=== PATIENT | female | born 1950 | race Caucasian/White ===

== ENCOUNTER 2016-12-27 11:42 | Emergency (ER) | payer MEDICARE ==
[2016-12-27 12:31] VITALS: TEMP 98
--- NOTE | 2016-12-27 13:26 | ED ---
Fall HPI - General Chief Complaint: Fall Stated Complaint: Fall Time Seen by Provider: 12/27/16 13:05 Source: patient, RN notes reviewed Mode of arrival: wheelchair - History of Present Illness Initial Comments: 66-year-old female presents to the emergency department with a chief complaint of fall. Patient was sitting on a chair Nikolai bandage or legs and she fell onto his left side. Patient states that her left knee left hip left rib cage and left side of neck and head hurt. Patient states she has a mild headache. Patient states that she went for a walk today shows that she was SITTING LEFT SIDE SO SHE WAS CONCERNED. PATIENT STATES THERE IS NO OTHER INJURY FROM THE INCIDENT. PATIENT STATES THERE IS NO LOSS OF CONSCIOUSNESS. PATIENT DENIES ANY USE OF BLOOD THINNERS. PATIENT STATES THAT HER SYMPTOMS SEEM TO BE ABOUT THE SAME CONSTANT THROBBING TYPE PAIN THAT IS MODERATE WORSE TO TOUCH IN CERTAIN MOVEMENT. PATIENT STATES THAT SHE IS NOT CURRENTLY HAVING ANY OTHER SYMPTOMS AT THIS TIME. Patient denies any recent fever, chills, shortness of breath, chest pain, back pain, abdominal pain, nausea vomiting, numbness or tingling, dysuria or hematuria, constipation or diarrhea, isual changes, or any other current symptoms. - Related Data Home Medications Medication Instructions Recorded Confirmed Cholecalciferol [Vitamin D3] 1,000 unit PO DAILY 12/27/16 12/27/16 Co Q-10 50 mg PO BID 12/27/16 12/27/16 Gluc/Christ-MSM#1/C/Stefan/Vin/Bor 1 tab PO DAILY 12/27/16 12/27/16 [Glucosamine-Chondroitin Tablet] L.acidoph,Paracasei, B.lactis 1 cap PO DAILY 12/27/16 12/27/16 [Probiotic] Metoprolol Succinate [Toprol XL] 25 mg PO HS 12/27/16 12/27/16 Multivitamins, Thera [Multivitamin 0.5 tab PO BID 12/27/16 12/27/16 (formulary)] Naproxen Sodium [Aleve] 220 mg PO Q12HR PRN 12/27/16 12/27/16 [place]-3 Fatty Acids/Fish Oil [Fish 1 cap PO BID 12/27/16 12/27/16 Oil 1,000 mg Softgel] Red Yeast Rice 600 mg PO BID 12/27/16 12/27/16 Thyroid,Pork [[place] Thyroid] 15 mg PO BID 12/27/16 12/27/16 Allergies Allergy/AdvReac Type Severity Reaction Status Date / Time Penicillins AdvReac "red eyes" Verified 12/27/16 13:47 steroids AdvReac "loopy" Uncoded 12/27/16 13:47 Review of Systems ROS Statement: Those systems with pertinent positive or pertinent negative responses have been documented in the HPI. ROS Other: All systems not noted in ROS Statement are negative. Past Medical History Past Medical History: Hypertension Additional Past Medical History / Comment(s): hypercholestremia History of Any Multi-Drug Resistant Organisms: None Reported Past Surgical History: Appendectomy Additional Past Surgical History / Comment(s): breast reduction, Cataract surgery Past Psychological History: No Psychological Hx Reported Smoking Status: Never smoker Past Alcohol Use History: None Reported, Occasional Past Drug Use History: None Reported General Exam - General Exam Comments Initial Comments: General: The patient is awake and alert, in no distress, and does not appear acutely ill. Eye: Pupils are equal, round and reactive to light, extra-ocular movements are intact; there is normal conjunctiva bilaterally. No signs of icterus. Ears, nose, mouth and throat: There are moist mucous membranes and no oral lesions. Neck: The neck is supple, there is no tenderness. Cardiovascular: There is a regular rate and rhythm. No murmur, rub or gallop is appreciated. Respiratory: Lungs are clear to auscultation, respirations are non-labored, breath sounds are equal. No wheezes, stridor, rales, or rhonchi. Alongthelateralwalloftheleftchestwithassociatedecchymosisnoted. Gastrointestinal: Soft, non-distended, non-tender abdomen without masses or organomegaly noted. There is no rebound or guarding present. No CVA tenderness. Bowel sounds are unremarkable. Back: There is no tenderness to palpation in the midline. There is no obvious deformity. No rashes noted. Musculoskeletal: Normal ROM, no tenderness, There is no pedal edema. There is no calf tenderness or swelling. Sensation intact. Pulses equal bilaterally 2+. Neurological: CN II-XII intact, There are no obvious motor or sensory deficits. Coordination appears grossly intact. Speech is normal. Skin: Skin is warm and dry and no rashes or lesions are noted. Psychiatric: Cooperative, appropriate mood & affect, normal judgment. Limitations: no limitations Course Vital Signs 12/27/16 12:27 Temperature 98.0 F Pulse Rate 71 Respiratory 20 Rate Blood Pressure 153/89 O2 Sat by Pulse 98 Oximetry Medical Decision Making - Medical Decision Making 66-year-old female presents chief complaint of fall. This time x-rays and imaging is reviewed. Patient appears most likely have a left rib contusion left knee contusion and left hip contusion. Patient has a minor head injury. She has a mild headache however there is no other symptoms to make suspicion for concussion. We discussed return parameters follow-up with him what to watch for. We discussed all patient's questions. She that she understood and all questions have been answered. She'll be discharged home. - Radiology Data Radiology results: report reviewed, image reviewed Disposition Clinical Impression: Fall, Contusion of rib on left side, Hip tenderness, left, Contusion of left knee, Minor head injury without loss of consciousness, Cervical strain, acute Disposition: HOME SELF-CARE Condition: Stable Instructions: Fall Prevention for Older Adults (ED), Contusion in Adults (ED) Additional Instructions: Please use medication as discussed. Please follow up with family doctor if symptoms have not improved over the next two days. Please return to the emergency room if your symptoms increase or worsen or for any other concerns. Referrals: Nonstaff,Physician [Primary Care Provider] - 1-2 days Trupti Pedro MD [STAFF PHYSICIAN] - 1-2 days Time of Disposition: 14:51
--- NOTE | 2016-12-27 14:05 | CT ---
EXAMINATION TYPE: CT brain jennifer wo con DATE OF EXAM: 12/27/2016 1:49 PM COMPARISON: NONE HISTORY: 66-year-old female with fall out of chair, pain at the back of head, more on the left. CT DLP: 1518.9 mGycm Automated exposure control for dose reduction was used. Technique: Examination of the head was done in axial plane without intravenous contrast. Coronal and sagittal reconstructions performed. CT of the cervical spine was obtained in axial plane without intravenous injection of contrast mater ial. Coronal and sagittal reformatted images were obtained from the axial views for evaluation of f ractures, spinal alignment and canal. FINDINGS: Head: There is no evidence of acute intracranial hemorrhage, acute ischemic changes, mass, mass-effect, or extra-axial fluid collection. There is no effacement of cerebral sulci or basal subarachnoid cister ns. There is no hydrocephalus. There is no midline shift. Ridley-white matter distinction is preserv ed. Mild cerebral cortical volume loss. Paranasal sinuses and mastoid air cells are well pneumatized. Orbits and globes appear intact. No valery varial fracture. Cervical spine: No craniocervical junction abnormality, predental space widening, or prevertebral soft tissue swellin g. There is normal alignment of the cervical spine with straightening of the normal cervical lordosis. Mild to moderate disc/endplate degenerative change mid to lower cervical spine from C5 through T1 lev els. Corresponding facet and uncovertebral joint degenerative change. There may be disc osteophyte complex at C6/C7 contributing to moderate spinal canal stenosis. Subopti mal visualization of the spinal canal from C5-C6 and below due to artifact from the patient's shoulde rs. No acute fracture of the cervical spine. Variable moderate neuroforaminal stenoses in the mid to lower cervical spine. A 1.2 cm focus of heterotopic ossification along the posterior midline opposite the C5 level. Sagittal and coronal reformatted images confirm above findings. COMBINED IMPRESSION: 1. No acute intracranial abnormality seen. Mild cerebral atrophy. 2. No acute fracture or malalignment of the cervical spine. Moderate spondylotic change mid to lower cervical spine as outlined above.
--- NOTE | 2016-12-27 14:32 | XR ---
EXAMINATION TYPE: AP view chest and left rib series DATE OF EXAM: 12/27/2016 2:18 PM COMPARISON: NONE HISTORY: 66-year-old female left-sided pain after fall one day ago FINDINGS: Heart is normal size. Aorta and pulmonary vasculature within normal limits. Mild interstitial promine nce has a chronic appearance. No consolidation, pleural effusion, or pneumothorax seen. No displaced left rib fracture. IMPRESSION: No displaced left rib fracture or acute cardiopulmonary process.
--- NOTE | 2016-12-27 14:35 | XR ---
EXAMINATION TYPE: AP view pelvis and 2 views left hip DATE OF EXAM: 12/27/2016 2:18 PM COMPARISON: NONE HISTORY: 66-year-old female left-sided pain after fall one day ago FINDINGS: SI joints appear symmetric and intact as does the pubic symphysis. There is mild degenerative change of the right hip and moderate on the left. No displaced fracture is seen. Limited visualization of th e femoral neck on the right due to external rotation of the hip during patient positioning. IMPRESSION: Moderate left and mild right hip osteoarthrosis. No displaced fracture seen.
--- NOTE | 2016-12-27 14:44 | XR ---
EXAMINATION TYPE: XR knee complete LT DATE OF EXAM: 12/27/2016 2:18 PM COMPARISON: NONE HISTORY: 66-year-old female left-sided pain after fall one day ago TECHNIQUE: 3 views FINDINGS: Mild marginal spurring in the patellofemoral and medial compartments. Extensor mechanism appears inta ct. Small underlying knee joint effusion. No acute fracture or dislocation. IMPRESSION: No acute osseous abnormality seen. However, there is the suggestion of a small underlying knee joint effusion. If concern for internal derangement, MRI can be performed.
[2016-12-27 15:05] VITALS: BP 148/80; PULSE 86; RESP 18
== END 2016-12-27 15:00 | disposition home or self-care (01) ==
LOC: EC 11:42
DX: S16.1XXA Strain of muscle, fascia and tendon at neck level, initial encounter (principal); S20.212A Contusion of left front wall of thorax, initial encounter; S80.02XA Contusion of left knee, initial encounter; S09.90XA Unspecified injury of head, initial encounter; M25.552 Pain in left hip; I10 Essential (primary) hypertension; E78.00 Pure hypercholesterolemia, unspecified; Z79.899 Other long term (current) drug therapy; Z88.0 Allergy status to penicillin; W07.XXXA Fall from chair, initial encounter; Y93.89 Activity, other specified
CPT/HCPCS: 70450; 72125; 73502; 99284